=== PATIENT | female | born 1955 | race Caucasian/White ===

== ENCOUNTER → 2016-12-28 | Outpatient (CLI) | payer BC ==
--- NOTE | 2016-12-28 09:50 | KCIC ---
EXAM: Left breast sonogram. HISTORY: 61-year-old female presents for 6 month follow-up evaluation of a cystic lesion within the left breast demonstrated on a sonogram dated 05/14/2016. TECHNIQUE: Sonographic imaging of the left breast targeted to the 1:30 o'clock subareolar location was performed. COMPARISON: 05/14/2016. FINDINGS: There is a complex hypoechoic lesion with internal septation within the 1:30 o'clock subareolar aspect of the left breast. This measures 1.4 cm in maximum dimension and appears to extend towards the nipple, possibly a focally dilated duct rather than complex cyst. This is minimally changed compared to the prior study, likely due to differences in measurement technique. There is no solid lesion component, architectural distortion or suspicious posterior shadowing associated with this lesion. No new lesion is seen. IMPRESSION: 1. 1.4 cm complex cystic lesion or focally dilated duct within the 1:30 o'clock subareolar aspect of the left breast, minimally changed compared to the prior study when allowing for differences in measurement technique. 2. BI-RADS Category 3: Probably benign finding(s). Short term follow up with a left breast sonogram in 6 months is recommended to confirm longer-term stability. This follow up interval corresponds with a previously established bilateral mammography interval. Electronically signed by: Francesca Newton MD (12/28/2016 9:46 AM)
== END | disposition home or self-care (01) ==
LOC: KCIC US 08:32
PROVIDERS: ATTEND Family Medicine
DX: N64.89 Other specified disorders of breast (principal)
CPT/HCPCS: 76641